=== PATIENT | male | born 1950 | race Caucasian/White ===

== ENCOUNTER 2016-10-31 18:23 | Inpatient (IN) | payer MEDICARE, OTHER ==
[2016-10-31 19:41] LABS: BASO % 1.6 % (0-2); BASO ABSOLUTE COUNT 0.1 tho/cmm (0.0-0.2); EOS % 2.4 % (0-7); EOSINOPHIL ABSOLUTE COUNT 0.1 tho/cmm (0.0-0.7); HCT-HEMATOCRIT 25.7 % (36.0-53.5); HGB-HEMOGLOBIN 8.3 gm/dl (13.5-17.0); IMMATURE GRANULOCYTES ABSOLUTE 0.02 tho/cmm (0-0.03); IMMATURE GRANULOCYTES PERCENT 0.4 % (0-0.3); LYMPH % 8.2 % (20-45); LYMPH ABSOLUTE COUNT 0.4 tho/cmm (0.8-4.5); MCH (MEAN CORPUSCULAR HGB) 31.1 pg (28.0-32.0); MCHC MEAN CORPUSCULAR HGB CONC 32.3 % (32.0-36.0); MCV (MEAN CELL VOLUME) 96.3 fl (82.0-96.0); MEAN PLATELET VOLUME 11.2 cmc (9.4-12.4); MONO % 8.6 % (0-12); MONOCYTE ABSOLUTE COUNT 0.4 tho/cmm (0.0-1.2); NEUTROPHILS % 78.8 % (40-80); PLATELET COUNT 328 tho/cmm (150-450); RED BLOOD COUNT 2.67 mil/cmm (4.40-5.70); RED CELL DISTRIBUTION WIDTH 17.2 % (12.4-16.4)
[2016-10-31 19:58] LABS: ALB/GLOB RATIO 0.8 (0.8-2.0); ALBUMIN 3.2 g/dl (3.5-5.0); ALKALINE PHOSPHATASE 255 U/L (33-138); ALT/SGPT 63 U/L (12-78); BILIRUBIN,TOTAL 0.7 mg/dl (0.0-1.5); BLOOD UREA NITROGEN 28 mg/dl (6-24); CALCIUM 8.3 mg/dl (8.5-10.5); CARBON DIOXIDE-VENOUS 21 mmol/L (22-32); CHLORIDE 108 mmol/l (96-110); CREATININE 1.07 mg/dl (0.60-1.30); GLUCOSE 98 mg/dL (70-110); SODIUM 141 mmol/L (135-145); eGFR VALUE FOR BLACK 83 mL/Min
[2016-10-31 20:02] LABS: ANION GAP 16 mmol/L (0-20); AST/SGOT 48 U/L (10-40); POTASSIUM 4.2 mmol/L (3.7-5.1)
[2016-10-31] MEDS ORDERED: XANAX1 M1 PO (20:25)
[2016-10-31] MEDS ORDERED: PROAIR HFA8.5 GM INH (20:27)
[2016-10-31] MEDS ORDERED: PREDNISONE5 M1 PO (20:27)
[2016-10-31] MEDS ORDERED: AGRYLIN0.5 M1 PO (20:28)
[2016-10-31] MEDS ORDERED: HYDROCODON-ACE1 EA16 PO (20:28)
[2016-10-31] MEDS ORDERED: ASPIRIN81 M1 PO (20:29)
[2016-10-31] MEDS ORDERED: FOLIC ACID1 M1 PO (20:29)
[2016-10-31] MEDS ORDERED: PLAQUENIL200 M1 PO (20:30)
[2016-10-31] MEDS ORDERED: PRINIVIL5 M1 PO (20:30)
[2016-10-31] MEDS ORDERED: FLONASE ALLERG9.9 ML (20:31)
[2016-10-31] MEDS ORDERED: LIPITOR80 M1 PO (20:31)
[2016-10-31] MEDS ORDERED: METHOTREXATE2.5 M1 PO (20:54)
[2016-11-01 05:06] LABS: BASO % 1.9 % (0-2); BASO ABSOLUTE COUNT 0.1 tho/cmm (0.0-0.2); EOS % 2.9 % (0-7); EOSINOPHIL ABSOLUTE COUNT 0.2 tho/cmm (0.0-0.7); HCT-HEMATOCRIT 24.9 % (36.0-53.5); LYMPH % 9.7 % (20-45); LYMPH ABSOLUTE COUNT 0.5 tho/cmm (0.8-4.5); MCH (MEAN CORPUSCULAR HGB) 30.9 pg (28.0-32.0); MCHC MEAN CORPUSCULAR HGB CONC 32.1 % (32.0-36.0); MCV (MEAN CELL VOLUME) 96.1 fl (82.0-96.0); MEAN PLATELET VOLUME 10.5 cmc (9.4-12.4); MONO % 5.2 % (0-12); MONOCYTE ABSOLUTE COUNT 0.3 tho/cmm (0.0-1.2); NEUTROPHIL ABSOLUTE COUNT 4.2 tho/cmm (1.6-8.0); NEUTROPHIL-AUTOMATED 4.2 tho/cmm (1.6-8.0); NEUTROPHILS % 80.3 % (40-80); PLATELET COUNT 293 tho/cmm (150-450); RED BLOOD COUNT 2.59 mil/cmm (4.40-5.70); RED CELL DISTRIBUTION WIDTH 17.5 % (12.4-16.4); WHITE BLOOD COUNT 5.2 tho/cmm (4.0-10.0)
[2016-11-01 05:12] LABS: ANION GAP 14 mmol/L (0-20); BLOOD UREA NITROGEN 25 mg/dl (6-24); CALCIUM 8.4 mg/dl (8.5-10.5); CARBON DIOXIDE-VENOUS 22 mmol/L (22-32); CHLORIDE 110 mmol/l (96-110); GLUCOSE 83 mg/dL (70-110); POTASSIUM 3.6 mmol/L (3.7-5.1); SODIUM 142 mmol/L (135-145); eGFR VALUE FOR BLACK >90 mL/Min
[2016-11-01 05:31] LABS: PROCALCITONIN 0.46 ng/ml (0.05-0.09)
[2016-11-01 06:15] LABS: URINE BILIRUBIN NEGATIVE (NEG); URINE BLOOD NEGATIVE (NEG); URINE GLUCOSE (UA) NEGATIVE (NEG); URINE KETONE NEGATIVE (NEG); URINE LEUKOCYTE ESTERASE NEGATIVE (NEG); URINE NITRITE NEGATIVE (NEG); URINE PROTEIN NEGATIVE (NEG)
[2016-11-01 06:16] LABS: URINE APPEARANCE CLEAR; URINE COLOR YELLOW
[2016-11-01] MEDS ORDERED: TEARS AGAIN EACH EYE (12:54)
[2016-11-01] MEDS ORDERED: COREG12.5 M1 PO (12:54)
[2016-11-01 16:48] LABS: IRON 41 ug/dl (49-181); IRON BINDING CAPACITY 227 ug/dl (250-450)
[2016-11-02] MEDS ORDERED: POTASSIUM CHLO10 ME2 PO (12:44)
[2016-11-02] MEDS ORDERED: LASIX20 M1 PO (12:44)
== END 2016-11-02 13:50 | DRG 153 ==
LOC: EDMED 18:23 → EMR2 22:46 → PCUB 23:44
PROVIDERS: Emergency Medicine; Hospitalist; Physician Assistant Medical; ADMIT Internal Medicine Interventional Cardiology
DX: J06.9 Acute upper respiratory infection, unspecified (principal); I11.0 Hypertensive heart disease with heart failure; I50.22 Chronic systolic (congestive) heart failure; I25.10 Atherosclerotic heart disease of native coronary artery without angina pectoris; Z95.5 Presence of coronary angioplasty implant and graft; Z87.891 Personal history of nicotine dependence; M06.9 Rheumatoid arthritis, unspecified; M19.90 Unspecified osteoarthritis, unspecified site; Z79.82 Long term (current) use of aspirin; R79.89 Other specified abnormal findings of blood chemistry; D63.8 Anemia in other chronic diseases classified elsewhere; E78.5 Hyperlipidemia, unspecified; I73.9 Peripheral vascular disease, unspecified; I25.5 Ischemic cardiomyopathy; Z79.52 Long term (current) use of systemic steroids; Z23 Encounter for immunization
CPT/HCPCS: G0009; J1940; J7512; P9016; Q9967